=== PATIENT | male | born 1925 | race Caucasian/White ===

== ENCOUNTER 2016-07-12 21:35 | Inpatient (IN) | payer OTHER, MEDICARE ==
[~2016-07-12] VITALS: Ht 172.7 cm; Wt 78.0 kg
--- NOTE | 2016-07-12 21:44 | NUR ---
PT TO ED C/O SOB, DIFF BREATHING AND PRODUCTIVE COUGH, MUCH WORSE SINCE 1630 THIS AFTERNOON. O2 SAT 92% IN TRIAGE. 3-4 WORD DYSPNEA WITH INCREASED WOB. WAS RECENTLY ADMITTED IN A [facility]. DX WITH +FLU AND BRONCHITIS. HAS BEEN USING ALBUTEROL INH. FEELS THAT COUGH IS NOT PRODUCTIVE IT HAD BEEN. BLE EDEMA TO BASELINE PER PT AND SPOUSE
--- NOTE | 2016-07-12 21:45 | ED DYSPNEA/ASTHMA COMPLAINT ---
History of Present Illness General Chief Complaint: Dyspnea (COPD, CHF, Other) Stated Complaint: DIFF BREATHING Source: patient, family, old records Exam Limitations: no limitations Allergies Coded Allergies: Iodinated Contrast Media - Oral and (HIVES 07/12/16) iodine (HIVES 07/12/16) Reconcile Medications Albuterol Sulfate (Proair Hfa) 90 MCG HFA.AER.AD 2 PUF INH 4 TIMES/DAY PRN RESPIRATORY (Reported) Aspirin (Ecotrin*) 81 MG TABLET.DR 1 TAB PO DAILY HEART/BLOOD (Reported) Atorvastatin Calcium 40 MG TABLET 1 TAB PO DAILY CHOLESTEROL (Reported) Ciprofloxacin HCl 500 MG TABLET 1 TAB PO BID ANTIBIOTIC (Reported) Clopidogrel Bisulfate (Clopidogrel) 75 MG TABLET 1 TAB PO DAILY BLOOD THINNER (Reported) Furosemide 20 MG TABLET 1 TAB PO DAILY DIURETIC (Reported) Metoprolol Succinate 25 MG TAB 1 TAB PO DAILY HEART/BP (Reported) Pantoprazole Sodium 20 MG TABLET.DR 1 TAB PO DAILY GI (Reported) Prednisone 10 MG TABLET 1 TAB PO DAILY STEROID (Reported) Triage Note: PT TO ED C/O SOB, DIFF BREATHING AND PRODUCTIVE COUGH, MUCH WORSE SINCE 1630 THIS AFTERNOON. O2 SAT 92% IN TRIAGE. 3-4 WORD DYSPNEA WITH INCREASED WOB. WAS RECENTLY Triage Nurses Notes Reviewed? yes Onset: Abrupt Duration: week(s): (1), constant, getting worse Timing: recent history Severity: moderate Activities at Onset: none Prior Episodes/Possible Cause: no prior episodes Associated Symptoms: cough, wheezing HPI: 89-year-old male with history of hypertension, coronary artery disease presents emergency room for evaluation complaining of persistent gradually worsening shortness of breath wheezing is present for the past week worse since 4:00 this afternoon. The patient states that he placed himself on Cipro last week for cough, and was seen at an urgent care and then subsequently transferred to an emergency room in [facility] 3 days ago for similar symptoms. He had a unremarkable workup including labs and chest x-ray which she brought with him and was sent home with inhalers and prednisone which he is been compliant with taking. He states he is feeling better up until today. He playing with nonproductive cough however denies fever chills chest pain no leg swelling or abdominal pain nausea vomiting. He does not smoke. They also report he tested positive for the flu in [place] 3 days ago, however was told by the provider he was outside the window for tamiflu. the pt was given the opportunity to be admitted 3 days ago however felt better after the breathing treatment and went home withprednisone. (CASEY BERUMEN) Vital Signs & Intake/Output Vital Signs & Intake/Output Vital Signs Date Time Temp Pulse Resp B/P Pulse O2 O2 Flow FiO2 Ox Delivery Rate 07/13 0904 66 140/86 07/13 0805 97.6 66 20 140/86 96 Nasal 3.0L Cannula 07/13 0800 Nasal 3.0L Cannula 07/13 0630 97.4 62 20 122/80 96 07/13 0620 95 Nasal 3.0L Cannula 07/13 0526 98.0 73 18 148/84 94 Nasal 2.0L Cannula 07/13 0135 97.3 64 116/55 92 Nasal 2.0L Cannula 07/12 2301 92 07/12 2156 94 07/12 2138 98.0 64 26 182/94 92 Room Air ED Intake and Output 07/13 0000 07/12 1200 Intake Total Output Total Balance Patient 172 lb Weight Past History Travel History Traveled to [place] past 21 day No Medical History Any Pertinent Medical History? see below for history Surgical History Surgical History: non-contributory Psychosocial History What is your primary language Cuban Tobacco Use: Quit >30 days ago Family History Hx Contributory? No (CASEY BERUMEN) Review of Systems Review of Systems Constitutional: Reports: see HPI. All Other Systems: Reviewed and Negative Comments Review of systems: See HPI, All other systems negative. Constitutional, no chills no fever, no malaise HEENT: No visual changes no sore throat no congestion, no ear pain Cardiovascular: No chest pain , no palpitation Skin, no jaundice no rashes, no change in skin Respiratory: No dyspnea cough no sputum no hemoptysis GI: No nausea no vomiting, no diarrhea, : No dysuria Muscle skeletal: No joint pain,, no back pain, no neck pain, Neurologic: No numbness, no headache Psych: No stress Heme/endocrine: No bruising no bleeding Immunology: No lymphadenopathy (CASEY BERUMEN) Physical Exam Physical Exam General Appearance: alert, awake, mild distress Respiratory: wheezing, respiratory distress Comments: Well-developed well-nourished person in no acute distress HEENT: Normal EENT exam; PERRL, EOMI, HEAD is atraumatic. moist mucous membranes. Neck: Supple, normal range of motion Back: Nontender, no CVA tenderness. Full range of motion Cardiovascular: Regular rate and rhythms no murmurs rubs Respiratory: Chest nontender.There were no bony deformities, no asymmetry. No respiratory distress. Patient speaking in 4-5 word sentences, wheezing bilaterally no rales no rhonchi Abdomen: Soft, nontender nondistended, no appreciable organomegaly. Normal bowel sounds. No rebound/guarding, Extremity: 1+ bilateral lower extremity edema, full range of motion of extremities, Neuro: Alert oriented x3, motor sensory normal,. There were no obvious focal neurologic abnormalities. Skin: No appreciable rash on exposed skin, skin is warm and dry. Psych: Mood and affect is normal, memory and judgment is normal. Core Measures ACS in differential dx? Yes Severe Sepsis Present: No Septic Shock Present: No (SWETA MARS,CASEY) Progress Differential Diagnosis: asthma, AMI, bronchitis, costochondritis, CHF, COPD, pericarditis, pulmonary embolism, pneumonia, unstable angina Diagnostic Imaging: Viewed by Me: Radiology Read. Discussed w/RAD: Radiology Read. Initial ED EKG: nsr at 70, no acute st seg changes, normal axis Prior EKG: unchanged (08/2009) Hand-Off Endorsed To: GIOVANA CABRAL,FIORELLA Harris Endorsed Time: 6 Pending: Xray (SWETA MARS,CASEY) Plan of Care: Orders Procedure Date/time Status Heart Healthy Diet 07/13 B Active Vital Signs 07/13 0542 Complete Teach/Educate 07/13 0542 Active Nutritional Intake, Monitor 07/13 0542 Active Isolation 07/13 0542 Active Intake & Output 07/13 0542 Complete Patient Care Conference 07/13 0542 Active Activity/Ambulation 07/13 0542 Active LACTIC ACID 07/13 0444 Complete STREP PNEUMO URINARY ANTIGEN 07/13 0408 Complete LEGIONELLA URINARY ANTIGEN 07/13 0408 Complete LOWER RESPIRATORY CULTURE 07/13 0408 Active RAPID VIRAL INFLUENZA A 07/13 0401 Complete VIRAL CULTURE 07/13 0401 Active TRC EVALUATION (GEN) 07/13 0356 Active OXYGEN SETUP (GEN) 07/13 0356 Active Pathway - chart 07/13 0356 Active House Staff 07/13 0356 Active Patient Data 07/13 0356 Active Code Status 07/13 0356 Active Misc Message 07/13 0302 Active ED Holding Orders 07/13 0302 Active Vital Signs 07/13 030 Active Code Status 07/13 030 Complete Patient Data 07/13 025 Active Admit to inpatient 07/13 0227 Active LACTIC ACID 07/13 0144 Complete Intake & Output 07/13 0035 Active Change service to 07/13 UNK Active VTE Mechanical Prophylaxis 07/13 UNK Active TROPONIN LEVEL 07/12 2144 Complete COMPREHENSIVE METABOLIC PANEL 07/12 2144 Complete CBC WITHOUT DIFFERENTIAL 07/12 2144 Complete B-TYPE NATRIURETIC PEP (BNP) 07/12 2144 Complete EKG 07/12 2136 Active Current Medications Sig/Eliseo Start time Last Medication Dose Stop Time Status Admin Atorvastatin Calcium 40 MG 1700 07/13 1700 AC (Lipitor) Metoprolol Tartrate 25 MG DAILY 07/13 1000 CAN (Lopressor) Acetaminophen 650 MG Q6P PRN 07/13 0400 AC (Tylenol) Albuterol Sulfate 3 ML Q4H PRN 07/13 0400 AC (Proventil) Ipratropium [place] 2.5 ML Q4 HRS NEEDED PRN 07/13 040 AC (Atrovent) Laboratory Tests 07/13/16 0448: Lactic Acid 1.5 07/13/16 0401: Virus Culture Pending 07/13/16 0210: Lactic Acid 1.2 07/12/162206: Anion Gap 8, Estimated GFR 57 L, BUN/Creatinine Ratio 19.2, Glucose 99, Calcium 8.8, Total Bilirubin 1.0, AST 26, ALT 30, Alkaline Phosphatase 85, Troponin I < 0.01, Jzp-H-Ajibcszwrxi Pept 940 H, Total Protein 6.7, Albumin 3.7, Globulin 3.0, Albumin/Globulin Ratio 1.2, CBC w Diff NO MAN DIFF REQ, RBC 4.65 L, MCV 86.6, MCH 28.4, RDW 14.6 H, MPV 6.7 L, Gran % 72.5, Lymphocytes % 16.6 L, Monocytes % 9.1, Eosinophils % 1.4, Basophils % 0.4, Absolute Granulocytes 7.7 H, Absolute Lymphocytes 1.8, Absolute Monocytes 1.0 H, Absolute Eosinophils 0.1 , Absolute Basophils 0, PUBS MCHC 32.8 L Microbiology 07/13 526 URINE ROUT: Legionella Antigen - COMP 07/13 526 URINE ROUT: Streptococcus pneumoniae Antigen (M - COMP 07/136 NASOPHARYN: Influenza Virus A & B Rapid Smear - COMP INFLUENZA TYPE A 07/13 407 LOWER RESP: Respiratory Culture - ORD 07/13 407 LOWER RESP: Gram Stain - ORD DuoNeb patient medicated with azithromycin Medrol IV Patient was recently seen in [place] old records from that visit were reviewed the chest x-ray from July 09 shows clear lung consolidation and pleural effusion or pneumothorax is identified. the cardiomediastinal silhouette is within normal limits 07/12/2016 10:57:06 PM discussed with the patient at length all his lab results to date and plan, case discussed Dr. Martin. d/w the pt and his all of his results, pt with improvement after cont neb, however still wheezing-d/w them need for admission given failed outpt tx which they are in agreement with case d/w and signed out to dr martin pending xray prior to pts admisson PATIENT: ANGELINE THOMAS DDS PRESENT AGE: 89 PATIENT ACCOUNT NO: [id number] : [birth year] LOCATION: [facility] ORDERING PHYSICIAN: CASEY MARS SERVICE DATE: 07/12/16 EXAM TYPE: RAD - XRY-PORTABLE CHEST XRAY EXAMINATION: XR PORTABLE CHEST CLINICAL INFORMATION: Bronchitis not improving on antibiotics. COMPARISON: None TECHNIQUE: Portable AP view of the chest was obtained. 11:57 PM FINDINGS: Faint radiopacity of the right lung base above the diaphragm without silhouetting of the diaphragm. Small subtle infiltrate and/or subsegmental atelectasis. No pleural effusion. Heart size is normal. Cardiac and mediastinal contours are normal. No pulmonary vascular congestion. IMPRESSION: Small patchy right lower lobe infiltrate and/or subsegmental atelectasis. DICTATED BY: MAZIN CANTU MD DATE/TIME DICTATED:07/13/1652 LEAD RECREATION ASSISTANT:BONNIE DATE/TIME TRANSCRIBED:07/13/1652 CONFIDENTIAL, DO NOT COPY WITHOUT APPROPRIATE AUTHORIZATION. <Electronically signed in Other Vendor System> SIGNED BY: MAZIN CANTU MD 07/13/1657 (CASEY BERUMEN) Departure Departure Time of Disposition: 17 Disposition: STILL A PATIENT Condition: Stable Referrals: UNKNOWN Departure Forms: Customer Survey General Discharge Information (CASEY BERUMEN) Departure Clinical Impression Primary Impression: Pneumonia Qualifiers: Pneumonia type: due to unspecified organism Laterality: right Lung location: lower lobe of lung Qualified Code: J18.1 - Lobar pneumonia, unspecified organism Secondary Impressions: Bronchospasm, acute Admission Note Spoke With: PROSPER CHARLES MD Documentation of Exam: Documentation of any treatments & extenuating circumstances including Concerns Regarding Discharge (functional status, medication knowledge or non-compliance, living conditions, etc.) that warrant an admission rather than observation: A should presents with clinical bronchospasm diffuse rhonchi and severe trouble breathing. He has been treated with prednisone and metered-dose inhalers without improvement. He has failed outpatient treatment. He has also been treated for influenza and now has an infiltrate on chest x-ray and a productive cough insistent with pneumonia. Given this patient's advanced age and associated medical comorbidities I feel he is at considerable risk of respiratory failure, sepsis and . I feel he now requires more aggressive management with inhaled bronchodilators, IV antibiotics and IV steroids. He should be monitored closely including pulse oximetry. Pulmonary consultation should be considered given the patient's lack of known history of lung disease. I feel this patient will require a multiple day hospitalization. PA/BUSINESS OBJECTS ARCHITECT Co-Sign Statement Statement: ED Attending supervision documentation- [X] I saw and evaluated the patient. I have also reviewed all the pertinent lab results and diagnostic results. I agree with the findings and the plan of care as documented in the PA's/BUSINESS OBJECTS ARCHITECT's documentation. [] I have reviewed the ED Record and agree with the PA's/BUSINESS OBJECTS ARCHITECT's documentation. [] Additions or exceptions (if any) to the PAs/BUSINESS OBJECTS ARCHITECT's note and plan are summarized below: [] (GIOVANA CABRAL,FIORELLA Harris) Critical Care Note Critical Care Note Critical Care Time: non-applicable (CASEY BERUMEN)
[2016-07-12] MEDS ORDERED: PROAIR HFA8.5 GM INH (21:47)
[2016-07-12] MEDS ORDERED: PREDNISONE10 M2 PO (21:47)
[2016-07-12] MEDS ORDERED: PANTOPRAZOLE SO20 M1 PO (21:48)
[2016-07-12] MEDS ORDERED: METOPROLOL SUCC25 M1 PO (21:48)
[2016-07-12] MEDS ORDERED: CIPROFLOXACIN500 M2 PO (21:48)
[2016-07-12] MEDS ORDERED: FUROSEMIDE20 M1 PO (21:48)
[2016-07-12] MEDS ORDERED: CLOPIDOGREL75 M1 PO (21:49)
[2016-07-12] MEDS ORDERED: ATORVASTATIN CA40 M1 PO (21:49)
[2016-07-12] MEDS ORDERED: ASPIRIN EC81 M1 PO (21:54)
--- NOTE | 2016-07-12 22:10 | NUR ---
BLOOD DRAWN AND SENT TO LAB GOLD LAV HIGUERA BLUE PINK TUBES COLLECTED
--- NOTE | 2016-07-12 22:14 | NUR ---
PT MEDICATED WITH 125MG SOLU MEDROL IV AND ZITHROMAX 500MG IN 250ML D5W @ 250 MLS/HR.
[2016-07-12 22:18] LABS: ABSOLUTE BASOPHIL COUNT 0 /CUMM (0.0-0.2); ABSOLUTE EOSINOPHIL COUNT 0.1 /CUMM (0.0-0.7); ABSOLUTE GRANULOCYTE CT 7.7 /CUMM (1.4-6.5); ABSOLUTE LYMPH COUNT 1.8 /CUMM (1.2-3.4); BASOPHIL % 0.4 % (0.0-2.0); EOSINOPHIL % 1.4 % (0-5); GRANULOCYTE % 72.5 % (42.2-75.2); HEMATOCRIT 40.2 % (42-52); MEAN CORPUSCULAR HGB 28.4 PG (27.0-31.0); MEAN CORPUSCULAR HGB CONC 32.8 G/DL (33.0-37.0); MEAN CORPUSCULAR VOLUME 86.6 FL (80.0-94.0); MEAN PLATELET VOLUME 6.7 FL (7.4-10.4); PLATELET COUNT 232 /CUMM (130-400); RBC DISTRIBUTION WIDTH 14.6 % (11.5-14.5); RED BLOOD CELL CT 4.65 /CUMM (4.70-6.10); WHITE BLOOD CELL COUNT 10.6 /CUMM (4.8-10.8)
--- NOTE | 2016-07-13 00:34 | NUR ---
PORTABLE XRAY AT BEDSIDE.
--- NOTE | 2016-07-13 00:58 | RADIOLOGY REPORT ---
EXAMINATION: XR PORTABLE CHEST CLINICAL INFORMATION: Bronchitis not improving on antibiotics. COMPARISON: None TECHNIQUE: Portable AP view of the chest was obtained. 11:57 PM FINDINGS: Faint radiopacity of the right lung base above the diaphragm without silhouetting of the diaphragm. Small subtle infiltrate and/or subsegmental atelectasis. No pleural effusion. Heart size is normal. Cardiac and mediastinal contours are normal. No pulmonary vascular congestion. IMPRESSION: Small patchy right lower lobe infiltrate and/or subsegmental atelectasis.
--- NOTE | 2016-07-13 02:10 | NUR ---
ROSENTHAL TOP TUBE SENT TO LAB.
--- NOTE | 2016-07-13 02:19 | NUR ---
PT MEDICATED WITH ROCEPHIN 1000MG IV OVER 5 MINS IN NS.
--- NOTE | 2016-07-13 02:33 | NUR ---
DR RAMSAY AT BEDSIDE TO EXPLAIN POC.
--- NOTE | 2016-07-13 04:00 | History & Physical ---
MARCIE ACBRAL,GEMA 07/13/16 0254: General Information and HPI Source of Information: patient, old records Exam Limitations: no limitations History of Present Illness: Patient is a 89-year-old male with significant past medical history of hypertension, hyperlipidemia, coronary artery disease s/p stent twice (last 2014 ), and ballooning, history of Cataract surgery presented with chief complaint of gradually progressive shortness of breath and productive cough since one week which got worse in the afternoon, so came to the [place] ED. Patient claims that he started having cough with the yellowish-green expectoration, since last 1 week. He had ciprofloxacin at home, so he started taking it. He went to the [place] on Tuesday because his symptoms are including worsening,shortness of breath and severe wheezing. His primary care physician is in [place]. He was given nebulization with albuterol, a course of prednisone and checked for flu which was positive. Chest x-ray was normal without any acute cardiopulmonary changes .After nebulization, his saturation remains low so he was sent to ED. in the ED again nebulizations were given, prednisone was given for total 5 days. Patient was feeling better and he went to work today. At the end of the day. He started having dry cough, gurgly voice and sore abdomen. He was also feeling feverish, palpitation, dizziness, lightheadedness. He denies fever, nausea, vomiting, diarrhea, constipation, dysuria. Personal history- He lives with the , working as a dentist, is able to do all his daily activity without any assistance.He drinks alcohol socially, quit smoking 40 years ago. He had flu and pneumococcal vaccine. Family history-father of aortic aneurysm, sister of breast cancer. Allergy-iodine Allergies/Medications Allergies: Coded Allergies: Iodinated Contrast Media - Oral and (HIVES 07/12/16) iodine (HIVES 07/12/16) Home Med list Albuterol Sulfate (Proair Hfa) 90 MCG HFA.AER.AD 2 PUF INH 4 TIMES/DAY PRN RESPIRATORY (Reported) Aspirin (Ecotrin*) 81 MG TABLET.DR 1 TAB PO DAILY HEART/BLOOD (Reported) Atorvastatin Calcium 40 MG TABLET 1 TAB PO DAILY CHOLESTEROL (Reported) Ciprofloxacin HCl 500 MG TABLET 1 TAB PO BID ANTIBIOTIC (Reported) Clopidogrel Bisulfate (Clopidogrel) 75 MG TABLET 1 TAB PO DAILY BLOOD THINNER (Reported) Furosemide 20 MG TABLET 1 TAB PO DAILY DIURETIC (Reported) Metoprolol Succinate 25 MG TAB 1 TAB PO DAILY HEART/BP (Reported) Pantoprazole Sodium 20 MG TABLET.DR 1 TAB PO DAILY GI (Reported) Prednisone 10 MG TABLET 1 TAB PO DAILY STEROID (Reported) Compliance With Home Meds: GOOD Past History Travel History Traveled to [place] past 21 day No Medical History Cardiovascular: hyperlipidemia, myocardial infarction Respiratory: bronchitis Influenza Vaccine Status received Surgical History Surgical History: cataract removal Past Family/Social History Psychosocial History Where do you live? Home Who Do You Live With? spouse Services at Home: None Primary Language: Vietnamese Smoking Status: Former Smoker ETOH Use: occasional use Illicit Drug Use: denies illicit drug use Living Will? yes Power of Director Nicu/HCP? Functional Ability Ambulation: independent Employment History Employment Employed (dentist) Profession/Employer dentist Review of Systems Review of Systems Constitutional: Reports: weakness. Denies: chills, diaphoresis, fever, malaise. EENTM: Denies: no symptoms. Cardiovascular: Reports: palpitations, peripheral edema. Denies: chest pain, edema, orthopena. Respiratory: Reports: cough, short of breath, sputum production, wheezing. GI: Reports: distention. Denies: abdominal pain, bloating, constipation, diarrhea, bowel incontinence, melena, nausea, bloody stool, changes in stool, vomiting. Genitourinary: Denies: discharge, dysuria, frequency, hematuria, hesitation, nocturia, pain. Musculoskeletal: Denies: back pain, gout, joint pain, joint swelling, muscle pain, muscle stiffness. Skin: Denies: cysts, change in skin color, change in hair/nails, dryness, erythema, jaundice, lesions, lymphangitis, lumps, moles. Neurological/Psychological: Denies: anxiety, ataxia, cognitive dysfunction, confusion, depressed, dementia, emotional problems, headache, paresthesia, pre-existing deficit, tingling, tremors. Exam & Diagnostic Data Last 24 Hrs of Vital Signs/I&O Vital Signs Date Time Temp Pulse Resp B/P Pulse O2 O2 Flow FiO2 Ox Delivery Rate 07/13 0135 97.3 64 116/55 92 Nasal 2.0L Cannula 07/12 2301 92 07/12 2156 94 07/128 98.0 64 26 182/94 92 Room Air Intake & Output 07/13 0800 07/13 0000 07/12 1600 Intake Total 0 Output Total Balance 0 Intake, Oral 0 Patient 78.018 kg Weight Physical Exam General Appearance Alert, Oriented X3, Cooperative, No Acute Distress Skin No Rashes, No Breakdown HEENT Atraumatic, PERRLA, EOMI, Dry Mucous membranes Neck Supple, No JVD Cardiovascular Normal S1, Normal S2 Lungs Bilateral wheezing Abdomen Soft, No Tenderness Neurological Normal Speech, Strength at 5/5 X4 Ext, Normal Tone, Sensation Intact, Cranial Nerves 3-12 NL Extremities No Clubbing, No Cyanosis, bilateral pitting edema Vascular Normal Pulses Last 24 Hrs of Labs/Jourdan: Laboratory Tests 07/13/16 0210: Lactic Acid 1.2 07/12/167: Anion Gap 8, Estimated GFR 57 L, BUN/Creatinine Ratio 19.2, Glucose 99, Calcium 8.8, Total Bilirubin 1.0, AST 26, ALT 30, Alkaline Phosphatase 85, Troponin I < 0.01, Arh-Y-Jxgsamplrtk Pept 940 H, Total Protein 6.7, Albumin 3.7, Globulin 3.0, Albumin/Globulin Ratio 1.2, CBC w Diff NO MAN DIFF REQ, RBC 4.65 L, MCV 86.6, MCH 28.4, RDW 14.6 H, MPV 6.7 L, Gran % 72.5, Lymphocytes % 16.6 L, Monocytes % 9.1, Eosinophils % 1.4, Basophils % 0.4, Absolute Granulocytes 7.7 H, Absolute Lymphocytes 1.8, Absolute Monocytes 1.0 H, Absolute Eosinophils 0.1 , Absolute Basophils 0, PUBS MCHC 32.8 L Microbiology 07/13 415 NASOPHARYN: Influenza Virus A & B Rapid Smear - RECD 07/13 407 URINE ROUT: Legionella Antigen - ORD 07/13 407 URINE ROUT: Streptococcus pneumoniae Antigen (M - ORD 07/13 407 LOWER RESP: Respiratory Culture - ORD 07/13 407 LOWER RESP: Gram Stain - ORD Diagnostic Data EKG Results heart rate 73, normal sinus rhythm, QTC 450, QTC 408, VA 140 CXR Results small patchy right lower lobe infiltrate/subsegmental atelectasis Assessment/Plan Assessment: Patient is a 89-year-old male with significant past medical history of hypertension, hyperlipidemia coronary artery disease s/p stent twice (last 2014) , and balloning, history of Cataract surgery presented with chief complaint of gradually progressive shortness of breath and productive cough since one week which got worse in the afternoon, so came to the [facility] ED. Vital signs at the time of admission - temperature 98.0, pulse 64, respiratory rate 26, blood pressure 182/94, SPO2 92% on room air Chest x-ray shows-small patchy right lower lobe infiltrate/subsegmental atelectasis EKG-heart rate 73, normal sinus rhythm, QTC 450, QTC 408, VA 140 Plan- Post influenza pneumonia , probably secondary to staph aureus * We will continue patient on oxygen with a target of SPO2 more than 92% * Injection Solu-Medrol 40 milligrams IV 8 hourly * Restart patient on antibiotic-ceftriaxone/azithromycin * We will continue tab Mucinex 600 twice a day * we will do sputum culture * TRC/nebulization * Incentive spirometry * if symptoms remains worse than we will place consult for pulm coronary artery disease s/p stent twice (last 2014), and ballooning * We'll continue tablet aspirin and/clopidogrel/atorvastatin as before Hypertension * We'll continue tablet metoprolol XL 25 milligrams daily, if bronchospasm continuous despite nebulization than we will think to holding it. Hyperlipidemia * We'll continue tablet atorvastatin 40 milligrams daily Bilateral lower leg edema , probably chronic Heart failure or peripheral vascular disease * We'll continue tablet furosemide 20 milligrams daily Diet-heart healthy diet DVT prophylaxis-ALP S/heparin CODE STATUS-Full Code. As Ranked By This Provider Problem List: 1. Status post angioplasty with stent 2. Coronary artery disease 3. Hyperlipidemia 4. Hypertension 5. Bronchospasm, acute 6. Pneumonia Qualifiers Pneumonia type: due to unspecified organism Laterality: right Lung location: lower lobe of lung Qualified Code: J18.1 - Lobar pneumonia, unspecified organism Core Measures/Miscellaneous Acute Coronary Syndrome ACS Diagnosis: No Cerebrovascular Accident CVA/TIA Diagnosis: No Congestive Heart Failure CHF Diagnosis: No Venous Thromboembolism VTE Risk Factors: Age > 40 VTE Prophylaxis Ordered Inpt: Mechanical (ALPS/TEDS) No Mech VTE prophylaxis d/t: No contraindications No VTE Pharm Prophylaxis d/t: No contraindications VTE Diagnosis: No VTE Type: NONE VTE Confirmed by (Test): NONE Severe Sepsis Severe Sepsis Present: No Septic Shock Septic Shock Present: No IV ABX Broad Spectrum: Yes Focused Exam Completed: Yes IV Vasopressors started: No Miscellaneous Documentation Attending Case Discussed With: PROSPER CHARLES MD Primary Care Physician: TORRES JO NP Patient sees these Specialists Machine Scallop Cutter Level of Patient Care: General Medicine AYLEEN BENÍTEZ 07/13/16 0400: Resident Review Statement Resident Statement: discussed with management retail intern Other Findings: He is 89-year-old man with past medical history of hypertension, coronary artery disease status post stent placement, GERD presented to ER with complaint of chest congestion, breathing difficulty and cough. According to patient all symptoms started 1 week ago. His cough was really bad and he was bringing up greenish phlegm. Next day of his symptoms he started taking ciprofloxacin 500 mg twice a day. He was also taking Mucinex. His symptoms did not improve. He went to [facility] in [place]. He was found Flu positive. He was not started on Tamiflu because he was out of window. He was given nebulization treatment but his breathing did not improve much and he was sent to ER from there. In ER he can got nebulization treatment and he was discharged on 5 days of prednisone. Cest x-ray x-ray done on July 09 is clear. Patient was taking ciprofloxacin and prednisone until yesterday. Yesterday he went to work but around 4 PM he started coughing again. He was feeling chest congestion and gurgling sounds from his throat. He was not able to bring phlegm up and felt like he cannot breathe. He reported chest pain upon coughing. Also reports chills, palpitations and feeling lightheaded. Currently he is feeling better. Denies any nausea, vomiting, abdominal pain, any change in urinary or bowel habits. He has chronic bilateral lower extremity swelling. He was a heavy smoker. Quit 40 years ago. He drinks socially, 2 glasses of vodka per week. He is a dentist by profession. Vitals on admission: Temperature 98, pulse 64, respiratory rate 26, blood pressure 182/94 and oxygen saturation 92% on 2 L Positive physical exam findings: Decreased air entry and wheezes bilaterally on lung auscultation. 1+ edema Bilateral lower extremities. Pertinent labs: ProBNP 940 EKG: Normal sinus rhythm with no acute ST-T wave changes Chest x-ray showed small patchy right lower lobe infiltrate. No pulmonary vascular congestion. In ER he got nebulization treatment, IV ceftriaxone, azithromycin and Solu- Medrol. Assessment and plan He is 89-year-old man with past medical history of hypertension, coronary artery disease status post stent placement, GERD presented to ER with complaint of chest congestion, breathing difficulty and productive cough. [place] slightly improved while on Cipro and prednisone initially. Problem list 1. Post influenza pneumonia 2. History of hypertension 3. History of coronary artery disease status post stents Plan We will admit patient to general medicine floor. Monitor vitals closely. Continue supplemental oxygen and keep oxygen saturation more than 92%. We will taper down oxygen as tolerated. We will continue [facility] nebs. Continue IV ceftriaxone and azithromycin Solu-Medrol. Sputum cultures. Urinary antigen for Legionella and strep pneumo. We will start patient on Mucinex. Continue all his home medications. Pain management pathway. Subcutaneous Lovenox for DVT prophylaxis. 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 Patient reports flu like symptoms (cough productive of green phlegm, congestion, HINDS) that started on Tuesday. He self treated with mucinex and ciprofloxacin with no improvement. He was seen at [facility] at [facility], tested positive for Flu but was not treated as he had symptoms for over 3 days. He went to the [facility] ER where he was given nebs and sent home on prednisone taper. CXR then was negative for pneumonia. He comes in today for worsening symptoms. Vitals stable, sats 92% on RA. AAO, evidently dyspneic but able to speak in full sentences. Chest b/l reduced air entry with expiratory wheezes. Labs unremarkable. EKG: SR. CXR: patchy right lower lobe infiltrate and/or subsegmental atelectasis. 1. Hypoxia, post influenza pneumonia, failed outpatient therapy. TRC nebs, sputum culture, IV ceftriaxone and azithro, IV steroids, mucinex. Consider Pulm consult if symptoms do not improve. 2. Continue aspirin, plavix, metoprolol, lasix and statin. DVT ppx Lovenox. Full code.
--- NOTE | 2016-07-13 04:03 | NUR ---
LAB CALLED FOR FLU SWAB.
--- NOTE | 2016-07-13 04:19 | NUR ---
FLU SWAB SENT TO LAB.
--- NOTE | 2016-07-13 04:47 | NUR ---
CRITICAL TEST RESULTS [id number] ANGELINE THOMAS DDS 89 M TESTS AND RESULTS: FLU A POSITIVE Results received and read back by: EARL SHEPHERD Results received date and time: 07/13/16 2377 The following provider was notified of the results, and read the results back: DR. AKHTAR Notified date and time: 07/13/16 at 0448
--- NOTE | 2016-07-13 04:48 | NUR ---
REPEAT LACTIC SENT TO LAB.
--- NOTE | 2016-07-13 05:17 | NUR ---
REPORT GIVEN TO SHERRY ON TELEMETRY.
--- NOTE | 2016-07-13 05:57 | Admission Certification ---
Admission Certification Certification Statement - As attending physician, I certify that at the time of - admission, based on clinical presentation, severity of - symptoms, need for further diagnostic testing and - therapeutic interventions, and risk of adverse outcomes - without in-hospital treatment, in my clinical assessment, - this patient requires an acute hospital stay for a minimum - of two nights or longer. I have also considered psychsocial - factors such as support system, advanced age, financial - issues, cognitive issues, and failed out-patient treatments, - past re-admission history, safety of patient, and lack of - compliance as applicable. Specific rationale supporting this admission is: Hypoxia, post influenza pneumonia, failed outpatient therapy.
[2016-07-13 06:30] VITALS: BP 122/80
[2016-07-13 08:05] VITALS: BP 140/86
[2016-07-13] MEDS ORDERED: AUGMENTIN 875-1 EACH PO (16:15)
[2016-07-13 16:42] VITALS: BP 121/71
[2016-07-14 00:29] VITALS: BP 118/70
--- NOTE | 2016-07-14 07:09 | PN- Housestaff ---
IZZY CABRAL,CLAY 07/14/16 0709: Subjective Follow-up For: Post influenza pneumonia Tele-Events Since Last Visit: GM hold Subjective: He c/o chest congestion with dry cough. He also has Rt. sided pleuritic pain with worsening with cough. No fever overnight. He needs home nebulizer. Review of Systems Constitutional: Denies: chills, fever, weakness. EENTM: Reports: no symptoms. Cardiovascular: Reports: chest pain (Rt. sided). Denies: palpitations, peripheral edema, syncope. Respiratory: Reports: cough, sputum production, wheezing. Gastrointestinal: Denies: abdominal pain, diarrhea, nausea, vomiting. Genitourinary: Reports: no symptoms. Musculoskeletal: Reports: no symptoms. Skin: Reports: no symptoms. Neurological/Psychological: Reports: no symptoms. Hematologic/Endocrine: Reports: no symptoms. Immunologic/Allergic: Reports: no symptoms. Objective Last 24 Hrs of Vital Signs/I&O Vital Signs Date Time Temp Pulse Resp B/P Pulse O2 O2 Flow FiO2 Ox Delivery Rate 07/14 0029 97.9 68 18 118/70 97 Nasal Cannula 07/14 0000 96 Nasal 2.0L Cannula 07/13 2228 97 Nasal 2.0L Cannula 07/13 1642 97.7 67 18 121/71 95 Nasal 2.0L Cannula 07/13 1449 98 Nasal 3.0L Cannula 07/13 1002 Room Air Room Air 07/13 0904 66 140/86 07/13 0805 97.6 66 20 140/86 96 Nasal 3.0L Cannula 07/13 0800 Nasal 3.0L Cannula Intake & Output 07/14 0800 07/14 0000 07/13 1600 Intake Total 900 600 761 Output Total 0 Balance 900 600 761 Intake, IV 281 Intake, Oral 900 600 480 Output, Urine 0 Physical Exam General Appearance: Alert, Oriented X3, Cooperative, No Acute Distress Skin: No Rashes, No Breakdown, No Significant Lesion HEENT: Atraumatic, PERRLA, EOMI, Mucous Membr. moist/pink Neck: Supple, No JVD, No LAD Lymphatic: Cervical nl Cardiovascular: Regular Rate, Normal S1, Normal S2, No Murmurs Lungs: Wheezing bilaterally + Abdomen: Normal Bowel Sounds, Soft, No Tenderness Neurological: Normal Gait, Normal Speech, Strength at 5/5 X4 Ext, Normal Tone, Sensation Intact, Cranial Nerves 3-12 NL Extremities: No Edema, Normal Pulses, No Tenderness/Swelling Vascular: Normal Pulses, Pulses Symmetrical Current Medications: Current Medications Sig/Eliseo Start time Last Medication Dose Route Stop Time Status Admin Acetaminophen 650 MG Q6P PRN 07/13 0400 AC PO Albuterol Sulfate 3 ML Q4H PRN 07/13 0400 AC 07/14 INH 0754 Aspirin Buffered 81 MG DAILY 07/13 1000 AC 07/13 PO 0904 Atorvastatin Calcium 40 MG 1700 07/13 1700 AC 07/13 PO 1641 Azithromycin 500 MG DAILY 07/13 1000 AC 07/13 Dextrose/Water 250 ML IV 0904 Ceftriaxone Sodium 1,000 MG DAILY 07/13 1000 AC 07/13 IV 0903 Clopidogrel Bisulfate 75 MG DAILY 07/13 1000 AC 07/13 PO 0904 Enoxaparin Sodium 40 MG DAILY 07/13 1000 AC 07/13 SC 0903 Furosemide 20 MG DAILY 07/13 1000 AC 07/13 PO 0904 Guaifenesin 600 MG Q12 07/13 1000 AC 07/13 PO 2102 Guaifenesin 10 ML Q6P PRN 07/13 1000 AC PO Ipratropium [place] 2.5 ML Q4 HRS NEEDED PRN 07/13 0400 CAN INH Methylprednisolone 40 MG DAILY 07/14 1000 AC IV Methylprednisolone 40 MG BID 07/13 2200 DC 07/13 IV 2102 Methylprednisolone 40 MG Q8 07/13 0600 DC 07/13 IV 0850 Metoprolol Succinate 25 MG DAILY 07/13 1000 AC 07/13 PO 0904 Omeprazole 20 MG DAILY AC 07/13 0700 AC 07/14 PO 0803 Patient Medication 1 ED .STK-MED ONE 07/13 1417 MO Teaching ED 07/13 1418 Last 24 Hrs of Lab/Jourdan Results Last 24 Hrs of Labs/Mics: Laboratory Tests 07/14/16 0705: CBC w Diff NO MAN DIFF REQ, RBC 4.29 L, MCV 86.3, MCH 29.1, RDW 14.6 H, MPV 7.5, Gran % 88.2 H, Lymphocytes % 5.7 L, Monocytes % 5.9, Eosinophils % 0, Basophils % 0.2, Absolute Granulocytes 13.2 H, Absolute Lymphocytes 0.8 L, Absolute Monocytes 0.9 H, Absolute Eosinophils 0, Absolute Basophils 0, PUBS MCHC 33.8 Microbiology 02/22 0825 LOWER RESP: Respiratory Culture - RECD 07/14 824 LOWER RESP: Gram Stain - RECD Lines/Diet/Fluids Lines: peripheral lines Assessment/Plan Assessment: 89 yo man with pmh of HTN, CAD s/p stent (2014), GERD, chronic LE edema, who is a dentist by profession, p/w worsening dyspnea on exertion and cough. Patient reports flu like symptoms (cough productive of green phlegm, congestion, HINDS) that started on Tuesday. He self treated with mucinex and ciprofloxacin with no improvement. He was seen at [facility] at [facility], tested positive for Flu but was not treated as he had symptoms for over 3 days. [facility] where he was given nebs and sent home on prednisone taper. CXR then was negative for pneumonia. He comes in today for worsening symptoms. 1. Post influenza pneumonia, failed outpatient therapy. Influenza A positive, he doesn't have fever, but he brings up greenish sputum with bilateral wheezing. WBC elevated to 15 today. [facility] nebs, IV ceftriaxone and azithro #2, IV solumedrol was tapered to daily today. Follow up CBC in am, if afebrile without leukocytosis, will discharge him home with po augmentin/azithromycin with po prednisone tmr. 2. Hx of CAD: Continue aspirin, plavix, metoprolol, lasix 3. HLD: c/w statin. DVT ppx Lovenox. Full code. Problem List: 1. Pneumonia 2. Influenza Pain Ratin Pain Location: Rt. sided pain associated with cough Pain Goal: Pain 4 or less Pain Plan: tyrenol prn Tomorrow's Labs & Rationales: CBC - infection, leukocytosis BEP - follow BUN/Cr DVT/Prophylaxis: pharmacological Discharge Plan Stable for Discharge? No Anticipated Discharge (Day): tomorrow GLEN JAUREGUI MD 07/14/16 1151: Attending MD Review Statement Attending Statement Attending MD Statement: examined this patient, discuss w/resident/PA/POT FIREMAN, agreed w/resident/PA/POT FIREMAN, reviewed EMR data (avail) Attending Assessment/Plan: 89M PMH HTN, CAD, GERD, recent influenza admitted with post-influenza pneumonia. Patient is mildly improved today. He says he feels stronger and better. He is audibly wheezing however despite nebulizer treatments. Mildly dyspneic with exertion. Now on room air, afebrile. Plan - May discontinue telemetry but do not transfer to general medicine floor, as patient will likely go home tomorrow - Continue Ceftriaxone and Azithromycin, will discharge on Augmentin and Azithromycin - Follow sputum and blood cultures - Continue Solumedrol, will discharge on Prednisone - Continue breathing treatments - Continue home medications - Anticipated discharge tomorrow. Please send CMR for review and place anticipated discharge order. - No labs tomorrow (elevated WBC likely secondary to steroids)
--- NOTE | 2016-07-14 07:24 | Patient Discharge Instructions ---
Discharge Instructions General Discharge Information You were seen/treated for: post flu pneumonia You had these procedures: IV antibiotics Special Instructions: Please follow up with your primary care doctor within 1 week after discharge Please continue taking oral antibiotics for 4 more days with prednisone taper course Diet Continue normal diet: Yes Recommended Diet: Heart Healthy Activity Full Activity/No Limits: Yes Activity Self Limited: No Additional ACTIVITY Info: Increase as tolerated Acute Coronary Syndrome Inclusion Criteria At DC or during hospital stay patient has or had the following: ACS DIAGNOSIS No Discharge Core Measures Meds if any: Prescribed or Continued at Discharge Meds if any: NOT Prescribed or Continued at Discharge Congestive Heart Failure Inclusion Criteria At DC or during hospital stay patient has or had the following: CHF DIAGNOSIS No Discharge Core Measures Meds if any: Prescribed or Continued at Discharge Meds if any: NOT Prescribed or Continued at Discharge Cerebrovascular accident Inclusion Criteria At DC or during hospital stay patient has or had the following: CVA/TIA Diagnosis No Discharge Core Measures Meds if any: Prescribed or Continued at Discharge Meds if any: NOT Prescribed or Continued at Discharge Venous thromboembolism Inclusion Criteria VTE Diagnosis No VTE Type NONE VTE Confirmed by (Test) NONE Discharge Core Measures - Per Current guidelines, there needs to be overlap - treatment for the first 5 days of Warfarin therapy. - If discharged on Warfarin prior to 5 days of - overlap therapy, the patient will need to be - assessed for post discharge needs including - *Post discharge parental anticoagulation - *Warfarin and/or parental anticoagulation education - *Follow up date to check INR post discharge At least 5 days overlap therapy as Inpatient No Meds if any: Prescribed or Continued at Discharge Note: Overlap Therapy is Warfarin and Anticoagulant Meds if any: NOT Prescribed or Continued at Discharge
[2016-07-14 08:13] VITALS: BP 128/82
[2016-07-14 08:13] LABS: ABSOLUTE BASOPHIL COUNT 0 /CUMM (0.0-0.2); ABSOLUTE EOSINOPHIL COUNT 0 /CUMM (0.0-0.7); ABSOLUTE GRANULOCYTE CT 13.2 /CUMM (1.4-6.5); ABSOLUTE LYMPH COUNT 0.8 /CUMM (1.2-3.4); ABSOLUTE MONOCYTE COUNT 0.9 /CUMM (0.10-0.60); BASOPHIL % 0.2 % (0.0-2.0); EOSINOPHIL % 0 % (0-5); MEAN CORPUSCULAR HGB 29.1 PG (27.0-31.0); MEAN CORPUSCULAR HGB CONC 33.8 G/DL (33.0-37.0); MEAN CORPUSCULAR VOLUME 86.3 FL (80.0-94.0); MEAN PLATELET VOLUME 7.5 FL (7.4-10.4); RBC DISTRIBUTION WIDTH 14.6 % (11.5-14.5); RED BLOOD CELL CT 4.29 /CUMM (4.70-6.10)
[2016-07-14 08:51] LABS: GRANULOCYTE % 88.2 % (42.2-75.2); PLATELET COUNT 221 /CUMM (130-400)
[2016-07-14 15:49] VITALS: BP 152/86
--- NOTE | 2016-07-14 17:26 | NUR ---
TRANSFER REPORT GIVEN TO VERÓNICA PECK FOR PATIENT TO MOVE TO [address]
--- NOTE | 2016-07-14 17:52 | Discharge Summary ---
See Addendum Visit Information Visit Dates Admission Date: 07/13/16 Discharge Date: 07/15/2016 Hospital Course Course Attending Physician: SHANIA CABRAL,GLEN Primary Care Physician: DEYSI KEARNEY,[facility] Course: 89 yo man with pmh of HTN, CAD s/p stent (2014), GERD, chronic LE edema, who is a dentist by profession, presented with worsening dyspnea on exertion and cough. Patient had cough, productive greenish phlegm, chest congestion and dyspnea on exertion that started about 1 week ago. He self treated with mucinex and ciprofloxacin from home without improvement. He was seen at [facility]'s clinic at [facility] and had positive for Flu. However, he was not treated with tamiflu as he had symptoms for over 3 days. He went to the [facility] ER where he was given nebulizer treatment and sent home on prednisone taper. CXR then was negative for pneumonia. He went back to work, but at the end of the day he came to [place] ED for worsening dry cough and chest congestion. He was also feeling feverish, palpitation, dizziness, lightheadedness. He denied nausea, vomiting, diarrhea, constipation, dysuria. At baseline, he is working as a part-time dentist being able to do all his daily activity without any assistance. He drinks alcohol socially (2 glasses of vodka per week). Former smoker (quit 40 years ago). He had flu and pneumococcal vaccine. He has allergy to oral/IV iodinated contrast media (rash). Initial V/S: 98F AL 64 RR 26 BP 182/94 92% on RA On exam, Alert, oriented x 3, evidently dyspneic but able to speak in full sentences, Skin: No Rashes, No Breakdown, HEENT: Atraumatic, PERRLA, EOMI, Dry Mucous membranes Neck: Supple, No JVD, Cardiovascular: Normal S1, Normal S2, Lungs: Decreased air entry and wheezes bilaterally on lung auscultation, Abdomen: Soft, No Tenderness , Neurological: Normal Speech, Strength at 5/5 X4 Ext, Normal Tone, Sensation Intact, Cranial Nerves 3-12 NL Extremities: No Clubbing, No Cyanosis, bilateral pitting edema 1+, Vascular Normal Pulses Labs: WBC 10.6, granulocytes 72.5%, Hb/Hct 13.2/40.2, Na 141, K 4.3, BUN/Cr 23/ 1.2, trop < 0.01, ProBNP 940 EKG: Normal sinus rhythm with no acute ST-T wave changes Chest x-ray: small patchy right lower lobe infiltrate. No pulmonary vascular congestion. Patient was admitted to general medicine floor for following problem lists; 1. Post influenza pneumonia, failed outpatient therapy: Influenza A was positive. He brings up greenish sputum with bilateral wheezing. He was initially given IV solumedrol 125mg once in ED, and it was tapered down to IV solumedrol 40mg daily. He conitnued on TRC/nebs with IV ceftriaxone and azithromycin. He remained afebrile. Urinary strep pneumo & legionella Ags were negative. Sputum culture was not obtainable with poor quality specimen. Patient will be discharged home with 4 more days of po augmentin/azithromycin with po prednisone taper. Please follow up with a primary doctor within 1 week after discharge. 2. Hx of CAD s/p stent (2014): We continued aspirin, plavix, metoprolol as home dose 3. HLD: We continued atorvastatin 40mg daily. 4. Chronic bilateral LE edema: We continued home dose of po lasix 20mg daily. Heart healthy diet DVT ppx Lovenox. Full code. Allergies: Coded Allergies: Iodinated Contrast Media - Oral and (HIVES 07/12/16) iodine (HIVES 07/12/16) Disposition Summary Disposition Principal Diagnosis: Post influenza pneumonia Additional Diagnosis: HTN HLD Hx of CAD s/p stent Chronic bilateral LE edema Discharge Disposition: home or self care Discharge Instructions General Discharge Information Code Status: Full Code Patient's Diet: Heart healthy diet Patient's Activity: Increase as tolerated Follow-Up Instructions/Appts: 1. Please follow up with a primary care physician in 1 week after discharge 2. Please continue oral antibiotics with prednisone course. 3. Please take enough fluid and rest until full recovery. Medications at Discharge Discharge Medications: Stop taking the following medications: Prednisone (Prednisone) 10 MG TABLET ORAL DAILY Qty = 5 Ciprofloxacin HCl (Ciprofloxacin HCl) 500 MG TABLET ORAL TWICE DAILY Qty = 20 Continue taking these medications: Pantoprazole Sodium (Pantoprazole Sodium) 20 MG TABLET.DR 1 Tablet ORAL DAILY Qty = 90 Comments: PER PT Metoprolol Succinate (Metoprolol Succinate) 25 MG TAB 1 Tablet ORAL DAILY Qty = 90 Comments: PER PT Furosemide (Furosemide) 20 MG TABLET 1 Tablet ORAL DAILY Qty = 90 Comments: PER PT Atorvastatin Calcium (Atorvastatin Calcium) 40 MG TABLET 1 Tablet ORAL DAILY Qty = 90 Comments: PER PT Clopidogrel Bisulfate (Clopidogrel) 75 MG TABLET 1 Tablet ORAL DAILY Qty = 90 Comments: PER PT Aspirin (Ecotrin*) 81 MG TABLET.DR 1 Tablet ORAL DAILY Comments: PER PT Albuterol Sulfate (Proair Hfa) 90 MCG HFA.AER.AD 2 Puff Inhale through mouth 4 TIMES A DAY as needed for SHORTNESS OF BREATH Qty = 2 Comments: PER PT This prescription has been renewed Start taking the following new medications: Albuterol Sulfate (Albuterol Sulfate) 2.5 MG/3 ML (0.083 %) VIAL.NEB 3 Milliliters Inhale through mouth THREE TIMES DAILY as needed for Shortness of breath Qty = 4 No Refills Guaifenesin (Guaifenesin ER) 600 MG TAB.ER.12H 600 Milligram ORAL EVERY 12 HOURS Qty = 14 No Refills Azithromycin (Zithromax Tri-Oscar) 500 MG TABLET 1 Tablet ORAL DAILY Qty = 4 No Refills Prednisone (Prednisone) 20 MG TABLET 2 Tablet ORAL DAILY Qty = 8 No Refills Instructions: 07/16-07/19 Amoxicillin/Potassium Clav (Augmentin 875-125 Tablet) 875 MG-125 MG TABLET 1 Tablet ORAL TWICE DAILY Qty = 8 No Refills Prednisone (Prednisone) 20 MG TABLET 40 Milligram ORAL DAILY Qty = 4 No Refills Instructions: 07/15-07/16 Azithromycin (Zithromax Tri-Oscar) 500 MG TABLET 1 Tablet ORAL DAILY Qty = 3 No Refills Copies To: DEYSI KEARNEY,TORRES; SHANIA CABRAL,GLEN; SHREYA CABRAL,KIMANI
[2016-07-14 18:03] VITALS: BP 140/64
--- NOTE | 2016-07-14 19:12 | NUR ---
PT ARRIVED TO FLOOR AT [facility]. 1800. A&O X 3. WHEEZING NOTED THROUGHOUT LUNG AC. DENIES SOB, BUT DID REQUEST NEB TX. RESP CALLED. TRACE EDEMA NOTED TO BLE. DENIES PAIN. TO BS. MONITOR RESPIRATORY STATUS, MAINTAIN DROPLET PRECATIONS.
[2016-07-14 21:54] VITALS: BP 150/76
--- NOTE | 2016-07-15 07:10 | PN- Housestaff ---
IZZY CABRAL,CLAY 07/15/16 0709: Subjective Follow-up For: post influenza pneumonia Complaints: dry cough Tele-Events Since Last Visit: off tele -> GM Subjective: He has dry cough and chest congestion, but these symptoms are better than yesterday. His Rt. sided pleuritic chest pain is getting better. No fever/chills overnight. Still has wheezing sound. Review of Systems Constitutional: Denies: chills, fever, malaise, weakness. EENTM: Reports: no symptoms. Cardiovascular: Denies: chest pain, orthopena, palpitations, peripheral edema. Respiratory: Reports: cough, wheezing. Denies: hemoptysis, orthopnea, short of breath, sputum production. Gastrointestinal: Denies: abdominal pain, diarrhea, nausea, vomiting. Genitourinary: Reports: no symptoms. Musculoskeletal: Reports: no symptoms. Skin: Reports: no symptoms. Neurological/Psychological: Reports: no symptoms. Hematologic/Endocrine: Reports: no symptoms. Immunologic/Allergic: Reports: no symptoms. Objective Last 24 Hrs of Vital Signs/I&O Vital Signs Date Time Temp Pulse Resp B/P Pulse O2 O2 Flow FiO2 Ox Delivery Rate 07/15 0914 150/80 07/15 0830 96 Room Air 07/15 0728 97.5 60 20 150/80 95 Room Air 07/14 2154 97.8 61 20 150/76 93 Room Air 07/14 1803 98.6 63 20 140/64 93 Room Air 07/14 1616 92 Room Air 07/14 1549 97.7 58 18 152/86 95 Room Air 07/14 1018 128/82 Intake & Output 07/15 1600 07/15 0800 07/15 0000 Intake Total 550 Output Total Balance 550 Intake, IV 250 Intake, Oral 300 Physical Exam General Appearance: Alert, Oriented X3, Cooperative, No Acute Distress Skin: No Rashes, No Breakdown, No Significant Lesion, dry skin HEENT: Atraumatic, PERRLA, EOMI Neck: Supple, No JVD, No LAD Lymphatic: Cervical nl Cardiovascular: Regular Rate, Normal S1, Normal S2, No Murmurs Lungs: Clear to Auscultation, Normal Air Movement Abdomen: Normal Bowel Sounds, Soft, No Tenderness Neurological: Normal Speech, Strength at 5/5 X4 Ext, Normal Tone, Sensation Intact, Cranial Nerves 3-12 NL Extremities: No Edema, Normal Pulses Vascular: Normal Pulses, Pulses Symmetrical Current Medications: Current Medications Sig/Eliseo Start time Last Medication Dose Route Stop Time Status Admin Acetaminophen 650 MG Q6P PRN 07/13 0400 AC PO Albuterol Sulfate 3 ML TID 07/14 2200 AC 07/15 INH 0823 Albuterol Sulfate 3 ML Q4H PRN 07/13 0400 DC 07/14 INH 1904 Aspirin Buffered 81 MG DAILY 07/13 1000 AC 07/15 PO 0914 Atorvastatin Calcium 40 MG 1700 07/13 1700 AC 07/14 PO 1556 Azithromycin 500 MG DAILY 07/13 1000 AC 07/15 Dextrose/Water 250 ML IV 0913 Ceftriaxone Sodium 1,000 MG DAILY 07/13 1000 AC 07/15 IV 0913 Clopidogrel Bisulfate 75 MG DAILY 07/13 1000 AC 07/15 PO 0913 Enoxaparin Sodium 40 MG DAILY 07/13 1000 AC 07/15 SC 0914 Furosemide 20 MG DAILY 07/13 1000 AC 07/15 PO 0914 Guaifenesin 600 MG Q12 07/13 1000 AC 07/15 PO 0913 Guaifenesin 10 ML Q6P PRN 07/13 1000 AC PO Methylprednisolone 40 MG DAILY 07/14 1000 AC 07/15 IV 0914 Metoprolol Succinate 25 MG DAILY 07/13 1000 AC 07/15 PO 0914 Omeprazole 20 MG DAILY AC 07/13 0700 AC 07/15 PO 0643 Sodium Chloride 1,000 ML Q20H 07/14 1015 DC 07/14 IV 07/15 0614 1033 Assessment/Plan Assessment: 89 yo man with pmh of HTN, CAD s/p stent (2014), GERD, chronic LE edema, who is a dentist by profession, p/w worsening dyspnea on exertion and cough. Patient reports flu like symptoms (cough productive of green phlegm, congestion, HINDS) that started on Tuesday. He self treated with mucinex and ciprofloxacin with no improvement. He was seen at [facility] clinic at [facility], tested positive for Flu but was not treated as he had symptoms for over 3 days. He went to the [facility] ER where he was given nebs and sent home on prednisone taper. CXR then was negative for pneumonia. He comes in today for worsening symptoms. 1. Post influenza pneumonia, failed outpatient therapy. Influenza A positive, doing much better today. WBC was elevated to 15 with IV steroid. Conitnue TRC nebs, IV ceftriaxone and azithro #3, IV solumedrol was tapered to daily. Will discharge him home with 4 more days of po augmentin/azithromycin with po prednisone taper. Continue use of nebulizer/inhalers. Follow up with a primary doctor within 1 week. 2. Hx of CAD: Continue aspirin, plavix, metoprolol, lasix 3. HLD: c/w statin. DVT ppx Lovenox. Full code. Problem List: 1. Influenza Pain Ratin Pain Location: NA Pain Goal: Pain 4 or less Pain Plan: tyrenol prn Tomorrow's Labs & Rationales: dc today Discharge Plan Stable for Discharge? Yes GLEN JAUREGUI MD 07/15/16 1227: Attending MD Review Statement Attending Statement Attending MD Statement: examined this patient, discuss w/resident/PA/CANDLE MOLDER, agreed w/resident/PA/CANDLE MOLDER, reviewed EMR data (avail) Attending Assessment/Plan: 89M PMH HTN, CAD, GERD, recent influenza admitted with post-influenza pneumonia. Patient is mildly improved today. He says he feels stronger and better. Wheezing is improved, no longer dyspneic. Now on room air, afebrile. Plan - Stable for discharge home - Continue Augmentin and Azithromycin to complete course - Prednisone as outpatient - Continue breathing treatments, nebulizer to be delivered today, will give rescue inhalers - Continue home medications
[2016-07-15 07:28] VITALS: BP 150/80
[2016-07-15] MEDS ORDERED: ALBUTEROL2.5 MG/3 M INH (07:57)
[2016-07-15] MEDS ORDERED: GUAIFENESIN ER600 MG PO (09:09)
[2016-07-15] MEDS ORDERED: PREDNISONE20 M1 PO (09:10)
[2016-07-15] MEDS ORDERED: ZITHROMAX TRI-500 M1 PO (09:10)
[2016-07-15] MEDS ORDERED: PROAIR HFA8.5 GM INH (09:12)
[2016-07-15 09:14] VITALS: BP 150/80
== END 2016-07-15 13:12 | DRG 195 ==
LOC: ENRESERV → CANRESERV → ENRESERVDT → ENRESERVTM → ERH 21:35 → 1NO 07-13 02:52 → ERHI 07-13 02:52 → ENPENDDIS 07-13 02:52 → 1NO 07-13 05:28 → 2NA 07-14 17:57
PROVIDERS: Internal Medicine; Physician Assistant Medical; ADMIT Student in an Organized Health Care Education/Training Program
DX: J11.00 Influenza due to unidentified influenza virus with unspecified type of pneumonia (principal); I10 Essential (primary) hypertension; Z87.891 Personal history of nicotine dependence; E78.5 Hyperlipidemia, unspecified; I25.10 Atherosclerotic heart disease of native coronary artery without angina pectoris; Z95.5 Presence of coronary angioplasty implant and graft; R60.0 Localized edema
CPT/HCPCS: 1NP; 2NAP; 36415; 87070; 87449; 87450; 87804; 87804-59; 93005; 93010; 94644; 96374; 96375; J0456; J0696; J1650; J2920; J2930; J7060